=== PATIENT | male | born 1980 | race Caucasian/White ===

== ENCOUNTER 2025-06-04 07:13 | Emergency (ER) | payer OTHER, SELFPAY ==
[2025-06-04 07:26] VITALS: BP 160/100; PULSE 80; RESP 16; TEMP 36.7; O2SAT 99; BMI 27.3
--- NOTE | 2025-06-04 07:50 | ED_ITS ---
HPI - Wound/Laceration General Chief Complaint: Wound/Laceration Stated Complaint: Cut on left thigh Time Seen by Provider: 06/04/25 07:17 Source: patient Mode of arrival: Ambulatory History of Present Illness HPI narrative: Patient is a 44-year-old male without any significant past medical history comes into the ED from home for evaluation of laceration to his left thigh, states he was at work when he was using a circular saw, states that the chair went down and he cut himself on his left medial thigh, not on any blood thinners was able to stand bear weight ambulate unassisted here. Unsure of tetanus status. Denies any other injuries at this time. Related Data Previous Rx's ?Medication ?Instructions ?Recorded cephalexin 500 mg capsule 500 mg PO Q6H 7 days #28 cap s 06/04/25 Allergies Allergy/AdvReac Type Severity Reaction Status Date / Time No Known Drug Allergies Allergy Verified 06/04/25 07:26 Review of Systems Review of Systems Narrative: General: Denies fever, chills, weight loss HEENT: Denies headache, eye drainage, eye irritation, head trauma, sore throat, voice change Cardiovascular: Denies any chest pain, palpitations, tachycardia Respiratory: Denies any shortness of breath, cough, wheeze, stridor GI/: Denies any abdominal pain, nausea, vomiting, diarrhea, bright red blood per rectum, melanotic stools, urinary frequency, urinary retention, dysuria, hematuria MSK: Denies any joint pain, muscle pains, swelling Skin: Laceration of the left anterior medial thigh Neuro: Denies any headache, lightheadedness, dizziness, fainting, weakness Psych: Denies SI/HI Patient History Smoking Status: Never smoker Exam Narrative Exam Narrative: General: Cooperative, well-developed, not in acute distress HEENT: Normocephalic, atraumatic, PERRLA, normal sclera, eyelids normal Neck: Active full range of motion, atraumatic Chest: Normal to inspection, negative crepitus, no overlying erythema ecchymosis Respiratory: Normal respiratory effort, not in acute respiratory distress, clear to auscultation bilaterally negative cough, wheeze, tachypnea, rhonchi, ra les Cardiology: Regular rate rhythm negative gallop, murmur, rubs GI/: No tenderness to palpation, soft, non rigid, normal to inspection, exam deferred MSK: Full active range of motion in all 4 extremities, atraumatic, no tenderness to palpation of any bony prominences Skin: 4-1/2 cm laceration noted to the anterior medial aspect of the left thigh, not actively bleeding, no foreign body no tendon or bony involvement Neuro: Alert awake oriented x3, moves all 4 extremities spontaneously, cranial nerves intact, able to answer all questions appropriately follows commands appropriately Psych: Cooperative, negative suicidal or homicidal ideations Initial Vital Signs Initial Vital Signs: Vital Signs Temperature 98.0 F 06/04/25 07:26 Pulse Rate 80 06/04/25 07:26 Respiratory Rate 16 06/04/25 07:26 Blood Pressure 160/100 H 06/04/25 07:26 Pulse Oximetry 99 06/04/25 07:26 Oxygen Delivery Method Room Air 06/04/25 07:26 Procedures Laceration Repair Laceration 1: Time of procedure: 08:02 Site: lower extremity Side (If applicable): left Size (cm): 4.5 Description: linear and clean Depth: involves muscle layer Local Anesthetic: lidocaine 2% and with epi Amount of anesthesia used (mL): 8 Pre-repair: wound explored, irrigated extensively and deep structures intact Skin layer closed with: other (ethilon) Skin layer suture size: 4-0 Number of sutures: 11 Technique: simple, interrupted Subcutaneous layer closed with: vicryl Subcutaneous layer suture size: 3-0 Number of sutures: 5 Technique: simple, interrupted Course Vital Signs Vital signs: Vital Signs - 8 hr 06/04/25 07:26 Temperature 98.0 F Pulse Rate 80 Respiratory Rate 16 Blood Pressure 160/100 H Pulse Oximetry 99 Oxygen Delivery Method Room Air MDM - Wound/Laceration Differential Diagnosis Differential diagnosis: Likely laceration, abscess, abrasion and avulsion of skin MDM Narrative Medical decision making narrative: Patient is a 44-year-old male without any significant past medical history coming into the ED from home for evaluation of laceration to the anterior medial thigh, states that he is working with a circular saw at work and states that the chair went down and he accidentally cut himself, he is not on any blood thinners, on exam there is a 4-1/2 cm laceration to the anterior medial thigh, no foreign body, not actively bleeding, no tendon or bony involvement, patient was sutured in the emergency department after administration of local in lidocaine with epi. Five sutures were placed subcutaneously, 3-0 Vicryl, 11 additional sutures were placed cutaneously, these were 4 0 Ethilon. Patient is going to be discharged home with prophylactic antibiotics 1st dose here, instructed to follow up with his primary care doctor in an outpatient setting, patient was able to stand bear weight ambulate unassisted, lower extremities neurovascularly intact, wound was thoroughly irrigated in the emergency department prior to suture repair, patient was given strict return precautions verbalized understanding of this and agrees to being discharged home with outpatient follow up Discharge Plan Departure Patient Disposition: Home Clinical Impression: Laceration of left thigh Instructions: DI for Laceration Repair Activity Restrictions/Additional Instructions: You have 11 sutures that should be removed in a proximally 1 week Please read the discharge instructions sheet carefully and bring all papers to all doctor follow-up visits, as it may contain information that your doctor may want to see. Disease processes change and evolve, if your symptoms worsen or if you develop any new symptoms that are concerning to you please return for evaluation. Your evaluation today does not show any evidence of any life-threatening/serious illnesses requiring admission to the hospital or surgery. Please follow-up with your doctor for re-evaluation in approximately 1 day. Seek immediate medical attention for any worrisome symptoms. *If you do not have a primary care provider please contact the [facility] Resource line at [phone]. They will ask some questions about your medical history and help get you set up with a doctor in the community. Prescriptions: New cephalexin 500 mg capsule 500 mg PO Q6H 7 Days Qty: 28 0RF Stand Alone Forms: Patient Portal/API
[2025-06-04] MEDS: TET,DIPH,PERTUSS(ACELL),VAC/PF 0.5 ML SYRINGE IM (07:57)
== END 2025-06-04 08:50 | disposition home or self-care (01) ==
PROVIDERS: Emergency Provider Student in an Organized Health Care Education/Training Program
DX: S71.112A Laceration without foreign body, left thigh, initial encounter (principal); W27.0XXA Contact with workbench tool, initial encounter; Z23 Encounter for immunization
CPT/HCPCS: 12002; 90471; 99283; 99284; 90715

== ENCOUNTER 2025-06-18 16:54 | Emergency (ER) | payer OTHER, SELFPAY ==
[2025-06-18 16:57] VITALS: BP 135/89; PULSE 74; RESP 18; TEMP 37; O2SAT 97; BMI 27.1
--- NOTE | 2025-06-18 17:20 | ED.WOUNDLAC ---
HPI - Wound/Laceration <Wendy Healy PA-C - Last Filed: 06/18/25 19:00> General Chief Complaint: Wound/Laceration Stated Complaint: Suture Removal Time Seen by Provider: 06/18/25 16:56 Source: patient Mode of arrival: Ambulatory History of Present Illness HPI narrative: Mr. Luca Mak is a pleasant 44-year-old male without any significant past medical history who presents to the emergency department for suture removal. On 06/04/2025 patient cut his left medial thigh using a circular saw. He came to the emergency department and had deep sutures placed in addition to 11 skin sutures. He was recommend to have sutures removed in 1 week. He was started on cephalexin and reports completing the course. Patient reports that he has had no issues with the wound and he was planning to remove the stitches himself but decided to come to the ER. There was slight redness around the wound. No drainage. No fevers or systemic symptoms. He feels well. Related Data Previous Rx's ?Medication ?Instructions ?Recorded doxycycline hyclate 100 mg capsule 100 mg PO BID 7 days #14 caps 06/18/25 Allergies Allergy/AdvReac Type Severity Reaction Status Date / Time No Known Drug Allergies Allergy Verified 06/18/25 16:57 Review of Systems <HOMER Villa Last Filed: 06/18/25 19:00> Review of Systems ROS Unobtainable: All systems reviewed & are unremarkable except as noted in HPI and below Exam <Wendy Healy PA-C - Last Filed: 06/18/25 19:00> Narrative Exam Narrative: GENERAL: 44 year old patient appears stated age. Well-developed patient, in no acute distress. ENT: Nose without bleeding, purulent drainage. Throat without erythema, tonsillar hypertrophy or exudate. Airway patent. NECK: Trachea midline. Cervical ROM intact. CARDIOVASCULAR: Regular rate and rhythm. RESPIRATORY: ?Nonlabored respirations. ?Speaking in clear, full sentences. ?Clear to auscultation. Breath sounds equal bilaterally. No wheezes, rales, or rhonchi. ? GASTROINTESTINAL: Abdomen soft, non-tender, nondistended. EXTREMITIES: On the anteromedial left thigh patient has an approximately 4.5 cm linear healed laceration with 11 simple interrupted sutures in place. There is approximately 1 cm of erythema surrounding the border of the laceration. No drainage. No fluctuance. NEURO: AOx3. ?Clear speech. ?Moves all 4 extremities appropriately. SKIN: Anteromedial left thigh wound described above. Initial Vital Signs Initial Vital Signs: Vital Signs Temperature 98.6 F 06/18/25 16:57 Pulse Rate 74 06/18/25 16:57 Respiratory Rate 18 06/18/25 16:57 Blood Pressure 135/89 06/18/25 16:57 Pulse Oximetry 97 06/18/25 16:57 Oxygen Delivery Method Room Air 06/18/25 16:57 <Durga Tran DO - Last Filed: 06/19/25 07:03> Initial Vital Signs Initial Vital Signs: Vital Signs Temperature 98.6 F 06/18/25 16:57 Pulse Rate 74 06/18/25 16:57 Respiratory Rate 18 06/18/25 16:57 Blood Pressure 135/89 06/18/25 16:57 Pulse Oximetry 97 06/18/25 16:57 Oxygen Delivery Method Room Air 06/18/25 16:57 Course <Wendy Healy PA-C - Last Filed: 06/18/25 19:00> Orders Ordered: Discontinued Medications Bacitracin (Bacitracin Oint 0.9 Gm Pckt) 1 applic TOP NOW ONE Stop: 06/18/25 17:27 Last Admin: 06/18/25 17:32 Dose: 1 applic Documented By: ROCAEL Doxycycline Hyclate (Doxycycline Hyclate 100 Mg Tablet) 100 mg PO NOW ONE Stop: 06/18/25 18:04 Last Admin: 06/18/25 18:23 Dose: 100 mg Documented By: RHINA Vital Signs Vital signs: Vital Signs - 8 hr 06/18/25 16:57 06/18/25 18:41 Temperature 98.6 F Pulse Rate 74 61 Respiratory Rate 18 16 Blood Pressure 135/89 130/91 H Pulse Oximetry 97 96 Oxygen Delivery Method Room Air Room Air <Durga Tran DO - Last Filed: 06/19/25 07:03> Orders Ordered: Discontinued Medications Bacitracin (Bacitracin Oint 0.9 Gm Pckt) 1 applic TOP NOW ONE Stop: 06/18/25 17:27 Last Admin: 06/18/25 17:32 Dose: 1 applic Documented By: ROCAEL Doxycycline Hyclate (Doxycycline Hyclate 100 Mg Tablet) 100 mg PO NOW ONE Stop: 06/18/25 18:04 Last Admin: 06/18/25 18:23 Dose: 100 mg Documented By: RHINA Vital Signs Vital signs: Vital Signs - 8 hr 06/18/25 16:57 06/18/25 18:41 Temperature 98.6 F Pulse Rate 74 61 Respiratory Rate 18 16 Blood Pressure 135/89 130/91 H Pulse Oximetry 97 96 Oxygen Delivery Method Room Air Room Air [facility] - Wound/Laceration <Wendy Healy PA-C - Last Filed: 06/18/25 19:00> Medical Records Attestation: I reviewed the patient's medical records. [facility] Narrative Medical decision making narrative: 44-year-old male without any significant past medical history who presents to the emergency department for suture removal. Differential diagnosis includes but is not limited to suture removal, laceration, wound infection, cellulitis, etc. On exam the patient is in no acute distress, nontoxic-appearing, all vital signs within normal limits. He has a healed laceration on the left thigh with surrounding erythema, slight induration but no drainage or fluctuance. Sutures have been in place about 1 week longer than recommened. Bacitracin was applied to the wound and all 11 sutures were removed easily. We will treat patient with doxycycline b.i.d. x7 days to treat mild wound infection after completing course of cephalexin already. Recommended follow up with the PCP, discussed daily wound care, discussed ED return precautions. Patient verbalized understanding of all information and is agreeable to the plan. He is stable for discharge home. <Durga Tran DO - Last Filed: 06/19/25 07:03> [facility] Narrative Medical decision making narrative: 44-year-old male without any significant past medical history who presents to the emergency department for suture removal. Differential diagnosis includes but is not limited to suture removal, laceration, wound infection, cellulitis, etc. On exam the patient is in no acute distress, nontoxic-appearing, all vital signs within normal limits. He has a healed laceration on the left thigh with surrounding erythema, slight induration but no drainage or fluctuance. Sutures have been in place about 1 week longer than recommened. Bacitracin was applied to the wound and all 11 sutures were removed easily. We will treat patient with doxycycline b.i.d. x7 days to treat mild wound infection after completing course of cephalexin already. Recommended follow up with the PCP, discussed daily wound care, discussed ED return precautions. Patient verbalized understanding of all information and is agreeable to the plan. He is stable for discharge home. Co-sign statement: I was available for consultation during this patient's emergency department visit. This chart is being signed by myself for administrative purposes only. I do not have direct contact with this patient during this visit. They were seen independently by the APC. Discharge Plan Departure Patient Disposition: Home Clinical Impression: Encounter for removal of sutures, Wound infection Activity Restrictions/Additional Instructions: Dear Mr. Luca Mak, Thank you for coming to the emergency department. Today we removed her stitches. Your wound is a bit red and I am concerned about infection so please complete the week of antibiotics that you have been sent. Please keep the wound clean and covered, you may wash at 1-2 times daily with warm soapy water then apply an antibiotic ointment. Please return to emergency department if you develop fevers, if the leg becomes more red or swollen or you have drainage or any concerns. Please follow up with your primary care doctor within the next 2-3 days for ER follow-up. (If you do not have a PCP you can call [phone]. ?to schedule an appointment with an [facility] Primary Care Provider) IF YOU DEVELOP ANY NEW OR WORSENING SYMPTOMS, RETURN TO THE ER! Please read the attached instructions, they highlight more specific treatments and interventions for you at home. Thank you for letting me participate in your care, Wendy Healy PA-C Prescriptions: New doxycycline hyclate 100 mg capsule 100 mg PO BID 7 Days Qty: 14 0RF Stand Alone Forms: Patient Portal/API
[2025-06-18] MEDS: BACITRACIN OINT 0.9 GM PCKT 1 APPLIC TOP (17:32)
[2025-06-18] MEDS: DOXYCYCLINE HYCLATE 100 MG TABLET PO (18:23)
[2025-06-18 18:41] VITALS: BP 130/91; PULSE 61; RESP 16; O2SAT 96
== END 2025-06-18 18:41 | disposition home or self-care (01) ==
PROVIDERS: Emergency Provider Physician Assistant
DX: Z48.02 Encounter for removal of sutures (principal); L08.89 Other specified local infections of the skin and subcutaneous tissue; Z99.0 Dependence on aspirator
CPT/HCPCS: 99283